=== PATIENT | male | born 1965 | race Caucasian/White ===

== ENCOUNTER → 2016-12-25 | Outpatient (CLI) | payer OTHER ==
--- NOTE | 2016-12-25 14:05 | CARD ---
APPROVED REPORT EXAM: Two-dimensional and M-mode echocardiogram with Doppler and color Doppler. Other Information Quality : GoodHR: 64bpm Rhythm : NSR INDICATION Hypertension/HCVD Dyspnea with exertion RISK FACTORS Obesity 2D DIMENSIONS RVDd3.4 (2.9-3.5cm)Left Atrium(2D)4.1 (1.6-4.0cm) IVSd1.5 (0.7-1.1cm)Aortic Root(2D)3.5 (2.0-3.7cm) LVDd4.3 (3.9-5.9cm)LVOT Diameter2.4 (1.8-2.4cm) PWd1.3 (0.7-1.1cm)LVDs3.0 (2.5-4.0cm) FS (%) 28.7 %SV45.4 ml LVEF(%)55.6 (>50%) Aortic Valve AoV Peak Woody.171.6cm/sAoV VTI34.4cm AO Peak GR.11.8mmHgLVOT Peak Woody.122.5cm/s LVOT VTI 28.62cmAO Mean GR.6mmHg ZORAIDA (VMAX)3.56nd4GDH (VTI)3.64cm2 Mitral Valve MV E Selukedr399.0cm/sMV E Peak Gr.4mmHg MV DECEL [id number] A Aznwotjy27.6cm/s MV E Mean Gr.2mmHgE/A Ratio1.5 MV A [id number] Pulmonary Valve PV Peak Pnwdltgm962.0cm/sPV Peak Grad.7mmHg Tricuspid Valve TR P. Nfpvmjzt140zq/sTR Peak Gr.27mmHg Pulmonary Vein S1 Bexrzqnj56.6cm/sD2 Tzrzhajg62.1cm/s LEFT VENTRICLE The left ventricle is normal size. There is mild left ventricular hypertrophy. The left ventricular s ystolic function is normal. The Ejection Fraction is 55-60%. There is normal LV segmental wall motion . The left ventricular diastolic function and filling is normal for age. RIGHT VENTRICLE The right ventricle is normal size. There is normal right ventricular wall thickness. The right ventr icular systolic function is normal. ATRIA The left atrium size is normal. The right atrium size is normal. The interatrial septum is intact wit h no evidence for an atrial septal defect or patent foramen ovale as noted on 2-D or Doppler imaging. AORTIC VALVE The aortic valve is normal in structure and function. Doppler and Color Flow revealed trace aortic re gurgitation. There is no significant aortic valvular stenosis. MITRAL VALVE The mitral valve leaflets are thickened. There is no evidence of mitral valve prolapse. There is no m itral valve stenosis. Doppler and Color Flow revealed no mitral valve regurgitation noted. TRICUSPID VALVE Doppler and Color Flow revealed mild tricuspid regurgitation. The pulmonary artery systolic pressure is estimated at 30 mmHg. There is no pulmonary hypertension. PULMONIC VALVE Doppler and Color Flow revealed no pulmonic valvular regurgitation. There is no pulmonic valvular handy nosis. GREAT VESSELS The aortic root is normal in size. The ascending aorta is Mildly dilated. The pulmonary artery is nor mal. The IVC is normal in size and collapses >50% with inspiration. PERICARDIAL EFFUSION There is no evidence of significant pericardial effusion. Critical Notification Critical Value: No <Conclusion> The left ventricular systolic function is normal. The Ejection Fraction is 55-60%. There is normal LV segmental wall motion. Trace aortic regurgitation. Mild tricuspid regurgitation. The pulmonary artery systolic pressure is estimated at 30 mmHg. There is no evidence of significant pericardial effusion.
== END | disposition home or self-care (01) ==
LOC: ECHO 07:36
PROVIDERS: ATTEND Family Medicine
DX: I08.2 Rheumatic disorders of both aortic and tricuspid valves (principal); I10 Essential (primary) hypertension
CPT/HCPCS: 93306

== ENCOUNTER → 2021-06-21 | Day surgery (SDC) | payer OTHER ==
[~2021-06-21] MED LIST: LISI10TA16 PO
[2021-06-21 09:04] VITALS: BP 149/88
== END | disposition home or self-care (01) ==
LOC: SURG 08:56
PROVIDERS: ATTEND Anesthesiology
DX: M54.2 Cervicalgia (principal); M50.30 Other cervical disc degeneration, unspecified cervical region; E66.9 Obesity, unspecified; I10 Essential (primary) hypertension; Z79.899 Other long term (current) drug therapy
CPT/HCPCS: 99204; G0463

== ENCOUNTER → 2021-07-27 | Outpatient (CLI) | payer OTHER ==
[2021-06-21 09:04] VITALS: BP 149/88
--- NOTE | 2021-07-27 16:06 | RAD ---
Examination: LEFT LOWER EXTREMITY - UNILATERAL VENOUS DOPPLER Technique: Ultrasound evaluation of the left lower extremity was performed from the groin to the uppe r calf with loaiza scale, spectral and color doppler evaluation. Indication: Leg swelling Comparison: None Findings: There is normal venous flow and compressibility of left common femoral vein, femoral vein, popliteal vein, and visualized proximal calf veins. Of note, exam is limited given suboptimal sonogra phic penetration. Impression: No evidence for deep vein thrombosis of left lower extremity from the level of the calf v eins to the groins. Electronically signed by: Gadiel Rice MD (07/27/2021 4:03 PM) DEMIAN
== END ==
LOC: RAD 15:37
PROVIDERS: ATTEND Family Medicine
DX: M79.605 Pain in left leg (principal)
CPT/HCPCS: 93971

== ENCOUNTER → 2021-12-13 | Outpatient (CLI) | payer OTHER ==
[2021-06-21 09:04] VITALS: BP 149/88
--- NOTE | 2021-12-13 14:55 | RAD ---
EXAM: LEFT KNEE, 3 VIEWS. HISTORY: Left knee pain. COMPARISON: None. FINDINGS: No fractures are identified. There is mild medial compartmental joint space narrowing and osteophytos is. Alignment is normal. There is no joint effusion. There is some ossification within the interosseo us membrane proximally. IMPRESSION: 1. Mild medial compartmental osteoarthritis. Electronically signed by: Don Dwyer MD (12/13/2021 2:53 PM) [id number]
== END ==
LOC: RAD 09:38
PROVIDERS: ATTEND Family Medicine
DX: M17.12 Unilateral primary osteoarthritis, left knee (principal); M25.862 Other specified joint disorders, left knee; M25.762 Osteophyte, left knee
CPT/HCPCS: 73562